=== PATIENT | female | born 1975 | race African-American/Black ===

== ENCOUNTER 2021-08-28 13:47 | Outpatient (CLI) | payer BC | END 2021-08-28 13:48 | disposition home or self-care (01) | LOC: ULT 13:47 | PROVIDERS: ATTEND Internal Medicine Nephrology | DX: N18.30 Chronic kidney disease, stage 3 unspecified (principal) | CPT/HCPCS: 76770 ==

== ENCOUNTER 2021-11-13 23:46 | Emergency (ER) | payer BC, SELFPAY ==
[2021-11-14 00:31] LABS: #Basophils 0.1 thou/uL (0.0-0.2); #Lymphocytes 1.8 thou/uL (1.20-3.40); #Monocytes 0.4 thou/uL (0.11-0.59); #Neutrophils 5.4 thou/uL (1.40-6.50); %Basophils 1.1 % (0.0-1.0); %Eosinophils 0.6 % (0.0-10.0); %Lymphocytes 23.6 % (21.0-51.0); %Monocytes 5.4 % (0.0-10.0); %Neutrophils 69.3 % (42.0-75.0); Hemoglobin 12.2 g/dL (12.0-16.0); Mean Corpuscular HGB CONC 33.3 g/dL (32.0-36.0); Mean Corpuscular Hemoglobin 30.8 pg (27.0-31.0); Mean Corpuscular Volume 92.5 fL (78.0-98.0); Mean Platelet Volume 8.8 fL (7.4-10.4); Platelet Count 203 thou/uL (130-400); RBC Distribution Width 14.2 % (11.5-14.5); Red Blood Cell (RBC) Count 3.95 mill/uL (4.20-5.40); White Blood Cell (WBC) Count 7.7 thou/uL (4.8-10.8)
[2021-11-14 00:42] LABS: BHCG - Serum Negative (NEGATIVE); Pregs Control Background? CLEAR/WHITE (CLR/WHITE); Pregs Control Bar Appear? YES (CONTROL BAR)
[2021-11-14 00:53] LABS: ALT (SGPT) 8 U/L (8-55); AST (SGOT) 12 U/L (5-34); Albumin 4.3 g/dL (3.5-5.0); Alkaline Phosphatase 89 U/L (40-110); Anion Gap 21 mmol/L (10-20); BUN (Urea Nitrogen) 12 mg/dL (7.0-18.7); Bilirubin, Total 0.5 mg/dL (0.2-1.2); CK (CPK) 268 U/L (29-168); Calc. Creatinine Clearance 0 mL/min (70-130); Carbon Dioxide 19 mmol/L (22-29); Chloride 103 mmol/L (98-107); Estimated GFR 45; Globulin 3.3 g/dL (2.4-3.5); Glucose 115 mg/dL (70-105); Magnesium 1.4 mg/dL (1.6-2.6); Potassium 3.3 mmol/L (3.5-5.1); Protein, Total 7.6 g/dL (6.0-8.3); Sodium 140 mmol/L (136-145)
[2021-11-14 00:54] LABS: Acetaminophen Less than 10.0 mcg/mL (10.0-30.0); Alcohol Less than 10 mg/dL (Less than 10); Salicylate Less than 8.0 mg/dL (15.0-30.0)
[2021-11-14 01:25] LABS: Bilirubin Negative (Negative); Blood, Urine Trace (Negative); Clarity Clear (Clear); Glucose, Urine (Dipstick) Normal (Negative); Ketone, Urine Negative (Negative); Leukocyte 25 Leu/uL (Negative); Nitrite Negative (Negative); Protein, Urine (Dipstick) 10 mg/dL (Neg-Trace); RBC/HPF 0-3 HPF (0-3); Squamous Epithelial 0-3 HPF (0-3); Urobilinogen Normal mg/dL (Less than 2); WBC/HPF 0-3 HPF (0-3); pH, Urine 5.5 (5.0-9.0)
[2021-11-14 01:30] LABS: Amphetamine Not Detected (NotDetected); Barbiturates Screen Not Detected (NotDetected); Benzodiazepine Screen Detected (NotDetected); Cocaine Metabolite Screen Not Detected (NotDetected); Methadone Not Detected (NotDetected); Methamphetamine Not Detected (NotDetected); Opiate Screen Not Detected (NotDetected); Oxycodone Screen Not Detected (NotDetected); Phencyclidine (PCP) Not Detected (NotDetected); THC/Cannabinoid Screen Not Detected (NotDetected); Tricyclic Screen Not Detected (NotDetected)
[2021-11-14 01:57] LABS: Bacteria/HPF 1+ HPF (None Seen)
[2021-11-14] MEDS ORDERED: Haloperidol Lactate 5 MG/ML VIAL ONE ×2 (02:24→04:18)
[2021-11-14] MEDS ORDERED: Ketamine 50 MG/ML (10ML VIAL) ONE (04:27)
[2021-11-14 06:43] LABS: SARS-CoV-2 NAA Rapid Test Not Detected (NotDetected)
[2021-11-14] MEDS ORDERED: Ziprasidone 20 MG VIAL ONE (06:59)
[2021-11-14] MEDS ORDERED: Sterile Water 10 ML ONE (07:00)
[2021-11-14] MEDS ORDERED: Acetaminophen 500 MG TAB ONE (11:15)
[2021-11-14] MEDS ORDERED: DULoxetine 30 MG CAP PO SCH (21:15)
[2021-11-14] MEDS ORDERED: levETIRAcetam 500 mg/5 ml Oral Solution PO SCH (21:15)
[2021-11-14] MEDS ORDERED: buPROPion HCl 100 MG TAB PO SCH (21:15)
== END 2021-11-15 08:24 ==
LOC: ERS 23:46
DX: F29 Unspecified psychosis not due to a substance or known physiological condition (principal)
CPT/HCPCS: 36415; 36416; 51701; 80053; 80306; 80307; 81003; 81015; 82550; 83735; 84443; 84484; 84703; 85025; 93005; 96372; 96374; J1630; J3486; U0002